=== PATIENT | male | born 1950 | race Caucasian/White ===

== ENCOUNTER 2023-11-30 10:27 | Inpatient (IN) | payer OTHER, MEDICARE ==
[2023-11-30] MEDS ORDERED: Bisacodyl 5 MG Tab PO PRN (10:53)
[2023-11-30] MEDS ORDERED: Sodium Chloride 0.9% 10 ML Syringe FLUSH PRN (10:53)
[2023-11-30] MEDS ORDERED: guaiFENesin 200 MG Tab PO PRN (10:53)
[2023-11-30] MEDS ORDERED: Ondansetron 4 MG Tab.DIS PO PRN (10:53)
[2023-11-30] MEDS ORDERED: Albuterol/Ipratropium 3.0-0.5 MG/3 ML Neb Soln NEB PRN (10:53)
[2023-11-30] MEDS ORDERED: Levofloxacin 500 MG Tab PO SCH (11:00)
[2023-11-30] MEDS ORDERED: Albuterol/Ipratropium 3.0-0.5 MG/3 ML Neb Soln NEB SCH (12:00)
[2023-11-30] MEDS ORDERED: Furosemide 40 MG Tab ONE (12:14)
[2023-11-30] MEDS: Furosemide 40 MG Tab PO SCH (12:14)
[2023-11-30] MEDS: Enoxaparin 40 MG/0.4 ML Syringe SUBCUT SCH (12:58)
[2023-11-30] MEDS ORDERED: Levofloxacin 500 MG Tab PO ONE (13:15)
[2023-11-30] MEDS: sulfaSALAzine 500 MG Tab PO SCH (17:49)
[2023-11-30 18:11] LABS: O2 DELIVERY DEVICE NASAL CANNULA
[2023-11-30 18:12] LABS: BASE EXCESS ARTERIAL 1.8 (-2.0-3.0); BICARBONATE,ARTERIAL 24.9 mm/L (22.0-26.0); O2 SATURATION ARTERIAL 91 % (95-98); PCO2 ARTERIAL 32 mm/Hg0 (35-45); PO2 ARTERIAL 54 mm/Hg (80-100)
[2023-11-30] MEDS ORDERED: FORMOTEROL IH SCH (20:00)
[2023-11-30] MEDS ORDERED: MOMETASONE IH SCH (20:00)
[2023-11-30] MEDS ORDERED: Formoterol/Mometasone 200-5 MCG 8.8 GM Inhaler IH SCH (20:00)
[2023-11-30] MEDS: atorvaSTATin 10 MG Tab PO SCH (20:16)
[2023-11-30] MEDS: Albuterol/Ipratropium 3.0-0.5 MG/3 ML Neb Soln NEB SCH (20:16)
[2023-11-30] MEDS: FORMOTEROL IH SCH (20:26)
[2023-11-30] MEDS: MOMETASONE IH SCH (20:26)
[2023-12-01] MEDS ORDERED: Tiotropium Inhaler 18 MCG Inhalation Powder Cap Kit of 5 INH SCH (08:00)
[2023-12-01] MEDS: Furosemide 40 MG Tab PO SCH (08:03)
[2023-12-01] MEDS: Albuterol/Ipratropium 3.0-0.5 MG/3 ML Neb Soln NEB SCH ×3 (08:03→19:20)
[2023-12-01] MEDS: Cholecalciferol (Vitamin D3) 25 MCG Tab PO SCH (08:03)
[2023-12-01] MEDS: sulfaSALAzine 500 MG Tab PO SCH ×2 (08:03→17:36)
[2023-12-01] MEDS: FORMOTEROL IH SCH ×2 (08:03→19:30)
[2023-12-01] MEDS: MOMETASONE IH SCH ×2 (08:03→19:30)
[2023-12-01] MEDS: TIOTROPIUM 18 MCG INH SCH (08:04)
[2023-12-01] MEDS: LEFLUNOMIDE 10 MG PO SCH (08:07)
[2023-12-01] MEDS: Enoxaparin 40 MG/0.4 ML Syringe SUBCUT SCH (12:26)
[2023-12-01] MEDS: atorvaSTATin 10 MG Tab PO SCH (19:20)
[2023-12-02] MEDS: Furosemide 40 MG Tab PO SCH (07:40)
[2023-12-02] MEDS: sulfaSALAzine 500 MG Tab PO SCH ×2 (07:40→17:50)
[2023-12-02] MEDS: Albuterol/Ipratropium 3.0-0.5 MG/3 ML Neb Soln NEB SCH ×3 (07:41→19:21)
[2023-12-02] MEDS: Cholecalciferol (Vitamin D3) 25 MCG Tab PO SCH (07:41)
[2023-12-02] MEDS: FORMOTEROL IH SCH ×2 (07:42→19:30)
[2023-12-02] MEDS: MOMETASONE IH SCH ×2 (07:42→19:30)
[2023-12-02] MEDS: LEFLUNOMIDE 10 MG PO SCH (07:42)
[2023-12-02] MEDS: TIOTROPIUM 18 MCG INH SCH (07:43)
[2023-12-02] MEDS: Levofloxacin 500 MG Tab PO SCH (11:32)
[2023-12-02] MEDS: Enoxaparin 40 MG/0.4 ML Syringe SUBCUT SCH (11:32)
[2023-12-02] MEDS: atorvaSTATin 10 MG Tab PO SCH (19:21)
[2023-12-03] MEDS: Furosemide 40 MG Tab PO SCH (08:17)
[2023-12-03] MEDS: Albuterol/Ipratropium 3.0-0.5 MG/3 ML Neb Soln NEB SCH ×3 (08:17→19:47)
[2023-12-03] MEDS: sulfaSALAzine 500 MG Tab PO SCH ×2 (08:17→18:38)
[2023-12-03] MEDS: Cholecalciferol (Vitamin D3) 25 MCG Tab PO SCH (08:17)
[2023-12-03] MEDS: FORMOTEROL IH SCH ×2 (08:27→20:03)
[2023-12-03] MEDS: MOMETASONE IH SCH ×2 (08:27→20:03)
[2023-12-03] MEDS: LEFLUNOMIDE 10 MG PO SCH (08:28)
[2023-12-03] MEDS: TIOTROPIUM 18 MCG INH SCH (08:29)
[2023-12-03] MEDS: Acetaminophen 325 MG Tab PO PRN ×2 (08:49→20:02)
[2023-12-03] MEDS: Enoxaparin 40 MG/0.4 ML Syringe SUBCUT SCH (12:12)
[2023-12-03] MEDS: atorvaSTATin 10 MG Tab PO SCH (19:47)
[2023-12-04] MEDS: sulfaSALAzine 500 MG Tab PO SCH ×2 (08:19→18:35)
[2023-12-04] MEDS: Cholecalciferol (Vitamin D3) 25 MCG Tab PO SCH (08:19)
[2023-12-04] MEDS: Albuterol/Ipratropium 3.0-0.5 MG/3 ML Neb Soln NEB SCH ×3 (08:19→19:27)
[2023-12-04] MEDS: MOMETASONE IH SCH ×2 (08:19→19:27)
[2023-12-04] MEDS: FORMOTEROL IH SCH ×2 (08:19→19:27)
[2023-12-04] MEDS: Furosemide 40 MG Tab PO SCH (08:19)
[2023-12-04] MEDS: LEFLUNOMIDE 10 MG PO SCH (08:25)
[2023-12-04 09:04] LABS: BASOPHILS ABSOLUTE AUTO 0.03 10^3/uL (0.00-0.50); BASOPHILS PERCENT AUTO 0.1 % (0-1); EOSINOPHILS ABSOLUTE AUTO 0.25 10^3/uL (0.00-1.50); EOSINOPHILS PERCENT AUTO 1.2 % (0-6); HEMATOCRIT 36.2 % (42.0-52.0); LYMPHOCYTES ABSOLUTE AUTO 0.75 10^3/uL (0.60-5.00); LYMPHOCYTES PERCENT AUTO 3.7 % (24-44); MEAN CORPUSCULAR HEMOGLOBIN 30.7 pg (27.0-32.0); MEAN CORPUSCULAR HGB CONC 33.1 g/dL (32.0-36.0); MEAN CORPUSCULAR VOLUME 92.6 fL (83.0-97.0); MONOCYTES ABSOLUTE AUTO 1.07 10^3/uL (0.00-1.50); MONOCYTES PERCENT AUTO 5.2 % (0-10); NEUTROPHILS ABSOLUTE AUTO 18.23 x10^3/uL (1.80-8.00); NEUTROPHILS PERCENT AUTO 88.8 % (41-71); PLATELET COUNT,PLT 261 10^3/uL (150-400); RED BLOOD CELL COUNT 3.91 x10^6/uL (4.50-6.00)
[2023-12-04 09:08] LABS: WHITE BLOOD CELL COUNT,WBC 20.5 10^3/uL (4.0-11.0)
[2023-12-04] MEDS: SPIRIVA RESPIMAT INH SCH (09:14)
[2023-12-04] MEDS: TIOTROPIUM 18 MCG INH SCH (09:16)
[2023-12-04 09:18] LABS: ALBUMIN 1.4 g/dL (3.4-5.0); BILIRUBIN TOTAL 0.7 mg/dL (0.0-1.0); CALCIUM 8.6 mg/dL (8.4-10.1); CREATININE 1.3 mg/dL (0.7-1.3); EST CRCL DRUG DOSING (CG) 54.72 mL/min; POTASSIUM,K 3.1 mEq/L (3.5-5.0); PROTEIN TOTAL,TP 6.6 g/dL (6.4-8.2)
[2023-12-04 09:30] LABS: C-REACTIVE PROTEIN 19.35 mg/dL (<=0.50)
[2023-12-04 09:40] LABS: CORONAVIRUS COVID-19 NAA NEGATIVE (NEGATIVE); INFLUENZA A NAA NEGATIVE (NEGATIVE); INFLUENZA B NAA NEGATIVE (NEGATIVE); RESPIRATORY SYNCYTIAL VIR NAA NEGATIVE (NEGATIVE)
[2023-12-04] MEDS ORDERED: Potassium Chloride 20 MEQ Tab.ER PO ONE (09:49)
[2023-12-04] MEDS: Levofloxacin 500 MG Tab PO SCH (11:01)
[2023-12-04] MEDS: Enoxaparin 40 MG/0.4 ML Syringe SUBCUT SCH (11:01)
[2023-12-04] MEDS ORDERED: VANCOmycin 2 GM/400 ML 2 GM in Premix Bag 1 BAG IV ONE (15:00)
[2023-12-04] MEDS: atorvaSTATin 10 MG Tab PO SCH (19:27)
[2023-12-05] MEDS: Albuterol/Ipratropium 3.0-0.5 MG/3 ML Neb Soln NEB SCH ×3 (07:48→19:19)
[2023-12-05] MEDS: sulfaSALAzine 500 MG Tab PO SCH ×2 (07:50→17:21)
[2023-12-05] MEDS: Furosemide 40 MG Tab PO SCH (07:50)
[2023-12-05] MEDS: Cholecalciferol (Vitamin D3) 25 MCG Tab PO SCH (07:50)
[2023-12-05] MEDS: LEFLUNOMIDE 10 MG PO SCH (07:51)
[2023-12-05] MEDS: FORMOTEROL IH SCH ×2 (07:51→19:22)
[2023-12-05] MEDS: SPIRIVA RESPIMAT INH SCH (07:51)
[2023-12-05] MEDS: MOMETASONE IH SCH ×2 (07:51→19:22)
[2023-12-05 10:17] LABS: BASOPHILS ABSOLUTE AUTO 0.06 10^3/uL (0.00-0.50); BASOPHILS PERCENT AUTO 0.3 % (0-1); EOSINOPHILS ABSOLUTE AUTO 0.09 10^3/uL (0.00-1.50); EOSINOPHILS PERCENT AUTO 0.4 % (0-6); HEMOGLOBIN 11.6 g/dL (14.0-18.0); IMMATURE GRAN ABSOLUTE AUTO 0.21 10^3/uL (0.00-0.49); LYMPHOCYTES ABSOLUTE AUTO 0.79 10^3/uL (0.60-5.00); LYMPHOCYTES PERCENT AUTO 3.9 % (24-44); MEAN CORPUSCULAR HEMOGLOBIN 30.1 pg (27.0-32.0); MEAN CORPUSCULAR HGB CONC 32.2 g/dL (32.0-36.0); MEAN CORPUSCULAR VOLUME 93.5 fL (83.0-97.0); MONOCYTES ABSOLUTE AUTO 1.15 10^3/uL (0.00-1.50); MONOCYTES PERCENT AUTO 5.7 % (0-10); NEUTROPHILS ABSOLUTE AUTO 17.99 x10^3/uL (1.80-8.00); NEUTROPHILS PERCENT AUTO 88.7 % (41-71); PLATELET COUNT,PLT 265 10^3/uL (150-400); RED BLOOD CELL COUNT 3.85 x10^6/uL (4.50-6.00)
[2023-12-05 10:23] LABS: WHITE BLOOD CELL COUNT,WBC 20.3 10^3/uL (4.0-11.0)
[2023-12-05 10:31] LABS: ALBUMIN 1.4 g/dL (3.4-5.0); BILIRUBIN TOTAL 0.7 mg/dL (0.0-1.0); C-REACTIVE PROTEIN 35.64 mg/dL (<=0.50); CALCIUM 8.9 mg/dL (8.4-10.1); CREATININE 1.6 mg/dL (0.7-1.3); EST CRCL DRUG DOSING (CG) 44.46 mL/min; POTASSIUM,K 4.4 mEq/L (3.5-5.0); PROTEIN TOTAL,TP 6.8 g/dL (6.4-8.2)
[2023-12-05] MEDS: Levofloxacin/Dextrose 5%-Water 750 MG in Premix Bag 1 BAG IV SCH (11:01)
[2023-12-05] MEDS: Enoxaparin 40 MG/0.4 ML Syringe SUBCUT SCH (11:38)
[2023-12-05] MEDS: VANCOmycin 1.25 GM/250 ML 1.25 GM in Premix Bag 1 BAG IV SCH (12:54)
[2023-12-05] MEDS: atorvaSTATin 10 MG Tab PO SCH (19:19)
[2023-12-05] MEDS: Acetaminophen 325 MG Tab PO PRN (19:22)
[2023-12-06] MEDS: Albuterol/Ipratropium 3.0-0.5 MG/3 ML Neb Soln NEB SCH ×3 (07:35→19:18)
[2023-12-06] MEDS: sulfaSALAzine 500 MG Tab PO SCH ×2 (07:35→17:09)
[2023-12-06] MEDS: Cholecalciferol (Vitamin D3) 25 MCG Tab PO SCH (07:36)
[2023-12-06] MEDS: Furosemide 40 MG Tab PO SCH (07:36)
[2023-12-06] MEDS: MOMETASONE IH SCH ×2 (07:39→20:12)
[2023-12-06] MEDS: FORMOTEROL IH SCH ×2 (07:39→20:12)
[2023-12-06] MEDS: LEFLUNOMIDE 10 MG PO SCH (07:40)
[2023-12-06] MEDS: SPIRIVA RESPIMAT INH SCH (07:41)
[2023-12-06 07:47] LABS: BASOPHILS ABSOLUTE AUTO 0.04 10^3/uL (0.00-0.50); BASOPHILS PERCENT AUTO 0.3 % (0-1); EOSINOPHILS ABSOLUTE AUTO 0.23 10^3/uL (0.00-1.50); EOSINOPHILS PERCENT AUTO 1.5 % (0-6); HEMATOCRIT 33.9 % (42.0-52.0); IMMATURE GRAN ABSOLUTE AUTO 0.18 10^3/uL (0.00-0.49); IMMATURE GRAN PERCENT AUTO 1.2 % (0.0-4.9); LYMPHOCYTES ABSOLUTE AUTO 1.02 10^3/uL (0.60-5.00); LYMPHOCYTES PERCENT AUTO 6.7 % (24-44); MEAN CORPUSCULAR HEMOGLOBIN 30.1 pg (27.0-32.0); MEAN CORPUSCULAR HGB CONC 32.4 g/dL (32.0-36.0); MEAN CORPUSCULAR VOLUME 92.6 fL (83.0-97.0); MONOCYTES ABSOLUTE AUTO 0.81 10^3/uL (0.00-1.50); MONOCYTES PERCENT AUTO 5.3 % (0-10); NEUTROPHILS ABSOLUTE AUTO 12.98 x10^3/uL (1.80-8.00); PLATELET COUNT,PLT 277 10^3/uL (150-400); RED BLOOD CELL COUNT 3.66 x10^6/uL (4.50-6.00); WHITE BLOOD CELL COUNT,WBC 15.3 10^3/uL (4.0-11.0)
[2023-12-06 08:02] LABS: ALBUMIN 1.2 g/dL (3.4-5.0); BILIRUBIN TOTAL 0.6 mg/dL (0.0-1.0); CALCIUM 8.5 mg/dL (8.4-10.1); CREATININE 1.5 mg/dL (0.7-1.3); EST CRCL DRUG DOSING (CG) 47.42 mL/min; POTASSIUM,K 3.6 mEq/L (3.5-5.0); PROTEIN TOTAL,TP 6.5 g/dL (6.4-8.2)
[2023-12-06 08:16] LABS: C-REACTIVE PROTEIN 19.74 mg/dL (<=0.50)
[2023-12-06] MEDS: Lactobacillus Rhamnosus GG (Probiotic) Cap PO SCH (09:05)
[2023-12-06] MEDS: Levofloxacin/Dextrose 5%-Water 750 MG in Premix Bag 1 BAG IV SCH (11:40)
[2023-12-06] MEDS: VANCOmycin 1.25 GM/250 ML 1.25 GM in Premix Bag 1 BAG IV SCH (13:04)
[2023-12-06] MEDS: Enoxaparin 40 MG/0.4 ML Syringe SUBCUT SCH (13:04)
[2023-12-06] MEDS: atorvaSTATin 10 MG Tab PO SCH (19:18)
[2023-12-06] MEDS: Acetaminophen 325 MG Tab PO PRN (20:09)
[2023-12-06 22:41] LABS: BORDETELLA PARAPERT IS1001 Not Detected (Not Detected)
[2023-12-07] MEDS: Albuterol/Ipratropium 3.0-0.5 MG/3 ML Neb Soln NEB SCH ×2 (07:46→14:02)
[2023-12-07] MEDS: Lactobacillus Rhamnosus GG (Probiotic) Cap PO SCH (07:48)
[2023-12-07] MEDS: Cholecalciferol (Vitamin D3) 25 MCG Tab PO SCH (07:48)
[2023-12-07] MEDS: Furosemide 40 MG Tab PO SCH (07:48)
[2023-12-07] MEDS: MOMETASONE IH SCH (07:49)
[2023-12-07] MEDS: FORMOTEROL IH SCH (07:49)
[2023-12-07] MEDS: LEFLUNOMIDE 10 MG PO SCH (07:50)
[2023-12-07] MEDS: SPIRIVA RESPIMAT INH SCH (07:52)
[2023-12-07] MEDS: sulfaSALAzine 500 MG Tab PO SCH (07:53)
[2023-12-07 08:18] LABS: BASOPHILS ABSOLUTE AUTO 0.04 10^3/uL (0.00-0.50); BASOPHILS PERCENT AUTO 0.3 % (0-1); EOSINOPHILS ABSOLUTE AUTO 0.18 10^3/uL (0.00-1.50); EOSINOPHILS PERCENT AUTO 1.3 % (0-6); HEMATOCRIT 35.1 % (42.0-52.0); HEMOGLOBIN 11.4 g/dL (14.0-18.0); IMMATURE GRAN PERCENT AUTO 0.7 % (0.0-4.9); LYMPHOCYTES ABSOLUTE AUTO 1.09 10^3/uL (0.60-5.00); LYMPHOCYTES PERCENT AUTO 7.9 % (24-44); MEAN CORPUSCULAR HEMOGLOBIN 30.2 pg (27.0-32.0); MEAN CORPUSCULAR HGB CONC 32.5 g/dL (32.0-36.0); MEAN CORPUSCULAR VOLUME 92.9 fL (83.0-97.0); MONOCYTES ABSOLUTE AUTO 0.76 10^3/uL (0.00-1.50); MONOCYTES PERCENT AUTO 5.5 % (0-10); NEUTROPHILS ABSOLUTE AUTO 11.62 x10^3/uL (1.80-8.00); NEUTROPHILS PERCENT AUTO 84.3 % (41-71); PLATELET COUNT,PLT 292 10^3/uL (150-400); RED BLOOD CELL COUNT 3.78 x10^6/uL (4.50-6.00); WHITE BLOOD CELL COUNT,WBC 13.8 10^3/uL (4.0-11.0)
[2023-12-07 08:33] LABS: ALBUMIN 1.3 g/dL (3.4-5.0); BILIRUBIN TOTAL 0.6 mg/dL (0.0-1.0); CALCIUM 8.8 mg/dL (8.4-10.1); CREATININE 1.4 mg/dL (0.7-1.3); EST CRCL DRUG DOSING (CG) 50.81 mL/min; POTASSIUM,K 3.5 mEq/L (3.5-5.0)
[2023-12-07 08:35] LABS: C-REACTIVE PROTEIN 31.51 mg/dL (<=0.50)
[2023-12-07] MEDS ORDERED: guaiFENesin 200 MG Tab PO SCH ×2 (10:00→14:00)
[2023-12-07] MEDS: Levofloxacin/Dextrose 5%-Water 750 MG in Premix Bag 1 BAG IV SCH (10:17)
[2023-12-07] MEDS: Enoxaparin 40 MG/0.4 ML Syringe SUBCUT SCH (11:34)
[2023-12-07] MEDS ORDERED: VANCOmycin 1.75 GM/350 ML 1.75 GM in Premix Bag 1 BAG IV SCH (12:00)
== END 2023-12-07 17:20 | DRG 947 ==
LOC: CC.MS 10:27 → UNDOADMIN 10:27 → CC.MS 10:55
PROVIDERS: ADMIT Nurse Practitioner; ATTEND Nurse Practitioner
DX: R53.81 Other malaise (principal); J18.9 Pneumonia, unspecified organism; J44.0 Chronic obstructive pulmonary disease with (acute) lower respiratory infection; N18.9 Chronic kidney disease, unspecified; I50.9 Heart failure, unspecified; R09.02 Hypoxemia; Z79.51 Long term (current) use of inhaled steroids; Z79.899 Other long term (current) drug therapy
CPT/HCPCS: 0241U; 36415; 36600; 71046; 71250; 80053; 80202; 82803; 83735; 84145; 84484; 85025; 86140; 87070; 87205; 87486; 87581; 87633; 87798; 93005; 94640; 97110-GP; A9270-GY; J1650; J1956; J3370; J7620-GY